=== PATIENT | female | born 1980 | race Caucasian/White ===

== ENCOUNTER 2017-08-22 16:48 | Emergency (ER) | payer OTHER ==
[2017-08-22 17:04] VITALS: BP 140/78; RESP 18
--- NOTE | 2017-08-22 17:07 | ED ---
Lower Extremity Injury HPI - General Chief Complaint: Extremity Injury, Lower Stated Complaint: Right Foot Injury Time Seen by Provider: 08/22/17 16:56 Source: patient, RN notes reviewed Mode of arrival: ambulatory Limitations: no limitations - History of Present Illness Initial Comments: This is a 37 year old female who presents with a chief complaint of right 4th toe and right foot pain which began 8 days ago after the patient stubbed her toe. The patent states the pain is worse when moving the right 4th toe and with walking. She states the swelling was worse and there was significant bruising initially compared to today. She denies any associated injuries. - Related Data Previous Rx's Medication Instructions Recorded Acetaminophen-Codeine 300-30mg 1 tab PO Q4H PRN #20 tablet 08/22/17 [Tylenol #3] Ibuprofen [Motrin] 600 mg PO Q8HR PRN #30 tab 08/22/17 Allergies Allergy/AdvReac Type Severity Reaction Status Date / Time No Known Allergies Allergy Verified 08/22/17 17:04 Review of Systems ROS Statement: Those systems with pertinent positive or pertinent negative responses have been documented in the HPI. ROS Other: All systems not noted in ROS Statement are negative. Past Medical History Past Medical History: No Reported History History of Any Multi-Drug Resistant Organisms: None Reported Past Surgical History: Cholecystectomy, Tubal Ligation Past Psychological History: No Psychological Hx Reported Smoking Status: Never smoker Past Alcohol Use History: None Reported Past Drug Use History: None Reported General Exam Limitations: no limitations General appearance: alert, in no apparent distress Eye exam: Present: normal appearance, PERRL, EOMI. Absent: scleral icterus, conjunctival injection, periorbital swelling Respiratory exam: Present: normal lung sounds bilaterally. Absent: respiratory distress, wheezes, rales, rhonchi, stridor Cardiovascular Exam: Present: regular rate, normal rhythm, normal heart sounds. Absent: systolic murmur, diastolic murmur, rubs, gallop, clicks Extremities exam: Present: tenderness (Notable right foot swelling and ecchymoses on the lateral aspect of the foot. Tender with palpation of the right dorsal foot and right 4th toe. The 4th toe is edematous. Neurovascular remains grossly intact.), normal capillary refill Neurological exam: Present: alert, oriented X3, CN II-XII intact Psychiatric exam: Present: normal affect, normal mood Skin exam: Present: warm, dry, intact, normal color. Absent: rash Course Vital Signs 08/22/17 17:01 Temperature 97.5 F L Pulse Rate 81 Respiratory 18 Rate Blood Pressure 140/78 O2 Sat by Pulse 97 Oximetry Medical Decision Making - Medical Decision Making 37-year-old female presented emergency Department chief complaint of right foot injury. X-rays were reviewed radiologist says there is no acute fracture though upon further review there is small cortical disruption noted the fourth digit. Patient was updated on x-ray results that she has a toe fracture patient we given prescription for anti-inflammatories, pain medication by the follow-up with primary care physician and return for any worsening symptoms. Disposition Clinical Impression: Toe fracture, right Disposition: HOME SELF-CARE Condition: Stable Instructions: Toe Fracture (ED) Additional Instructions: Please return to the Emergency Department if symptoms worsen or any other concerns. Prescriptions: Acetaminophen-Codeine 300-30mg [Tylenol #3] 1 tab PO Q4H PRN #20 tablet PRN Reason: pain Ibuprofen [Motrin] 600 mg PO Q8HR PRN #30 tab PRN Reason: Pain Referrals: None,Stated [Primary Care Provider] - 1-2 days Kris Gunn MD [STAFF PHYSICIAN] - 1-2 days Time of Disposition: 17:39
--- NOTE | 2017-08-22 17:25 | XR ---
PROCEDURE: XR foot limited RT 2 views DATE AND TIME: 08/22/2017 5:15 PM REFERRING PHYSICIAN: Abdoul Carvalho CLINICAL INDICATION: PHH, Pain Versed and anterior right foot pain after patient stubbed her big toe. TECHNIQUE: AP and lateral. COMPARISON: None FINDINGS: There is no fracture or malalignment. The soft tissues are unremarkable. IMPRESSION: NO ACUTE PROCESS.
[2017-08-22 17:56] VITALS: PULSE 82; TEMP 98
== END 2017-08-22 17:55 | disposition home or self-care (01) ==
LOC: EC 16:48
DX: S92.501A Displaced unspecified fracture of right lesser toe(s), initial encounter for closed fracture (principal); W22.8XXA Striking against or struck by other objects, initial encounter
CPT/HCPCS: 99283

== ENCOUNTER → 2018-08-01 | Outpatient (CLI) | payer OTHER | END | disposition home or self-care (01) | LOC: LABWHC1 10:51 | PROVIDERS: ATTEND Internal Medicine Critical Care Medicine | DX: J31.0 Chronic rhinitis (principal) | CPT/HCPCS: 36415; 82785 ==

== ENCOUNTER → 2018-10-30 | Outpatient (CLI) | payer OTHER ==
[2018-10-31 12:06] LABS: Dog Dander IgE <0.10 kU/L
[2018-10-31 12:07] LABS: Alternaria alternata IgE <0.10 kU/L; Birch IgE <0.10 kU/L; Maple (Box Elder) IgE <0.10 kU/L
[2018-10-31 12:08] LABS: Cockroach IgE <0.10 kU/L
[2018-10-31 12:09] LABS: Cat Epith & Dander IgE <0.10 kU/L; Dermato. farinae IgE <0.10 kU/L
[2018-10-31 12:10] LABS: Elm IgE <0.10 kU/L; Oak IgE <0.10 kU/L; Ragweed,Common IgE 0.13 kU/L; Red Top (Bentgrass) IgE <0.10 kU/L
== END | disposition home or self-care (01) ==
LOC: LABWHC1 13:27
PROVIDERS: ATTEND Internal Medicine Critical Care Medicine
DX: J30.89 Other allergic rhinitis (principal)
CPT/HCPCS: 36415; 82785; 86003

== ENCOUNTER → 2019-04-10 | Outpatient (CLI) | payer OTHER ==
[2019-04-10 20:58] LABS: HIV 1 AB Non-Reactive (Non-Reactive); HIV AB P24 Non-Reactive (Non-Reactive); HIV P24 AG Non-Reactive (Non-Reactive)
== END | disposition home or self-care (01) ==
LOC: LABWHC1 11:58
PROVIDERS: ATTEND Internal Medicine
DX: Z11.3 Encounter for screening for infections with a predominantly sexual mode of transmission (principal)
CPT/HCPCS: 36415; 86780; 87390

== ENCOUNTER → 2019-05-07 | Outpatient (CLI) | payer OTHER | END | disposition home or self-care (01) | LOC: LABWHC1 12:11 | PROVIDERS: ATTEND Internal Medicine Critical Care Medicine | DX: J31.0 Chronic rhinitis (principal) | CPT/HCPCS: 36415; 82785 ==

== ENCOUNTER → 2020-03-23 | Outpatient (CLI) | payer OTHER ==
--- NOTE | 2020-03-23 10:26 | XR ---
EXAMINATION TYPE: XR foot limited LT DATE OF EXAM: 03/23/2020 CLINICAL HISTORY: pain TECHNIQUE: Frontal, lateral images of the left foot are obtained. COMPARISON: None. FINDINGS: Fracture is noted at the base of the proximal phalanx left fifth toe with a degree of callu s formation suggesting nonacute process. 1 mm displacement seen. The joint spaces appear within norm al limits. The overlying soft tissue appears unremarkable. IMPRESSION: Fracture as well. ICD 10 closed FRACTURE, INITIAL EVALUATION
--- NOTE | 2020-03-23 23:04 | MR ---
EXAMINATION TYPE: MR shoulder RT wo con DATE OF EXAM: 03/23/2020 COMPARISON: None HISTORY: Rt shoulder pain, rotator cuff tear Technique: Multiplanar, multiecho imaging on a 3.0 Mer magnet is performed through the shoulder. Findings: Long head of the biceps tendon is within the bicipital groove. There is fluid in the subacromial bursa, this extends towards the subdeltoid bursa. Glenoid labrum a s visualized on this noncontrast study appears with increased signal within its superior portion. 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 Rotator cuff tendons are evaluated. There is fluid type signal transversing the distal supraspinatus tendon and a small segment measuring 0.9 cm. No tendon or muscle retraction is evident. No muscle at rophy is evident. Remaining rotator cuff tendons appear intact. The acromioclavicular junction is hypertrophied which can contribute to impingement syndrome. There i s some downward sloping of the acromion IMPRESSIONS: 1. Partial tear without tendon or muscle retraction of the distal supraspinatus tendon. 2. Moderate tendinosis supraspinatus tendon. 3. Consider superior glenoid labral tear.
== END | disposition home or self-care (01) ==
LOC: RADMRIMAIN 09:11
PROVIDERS: ATTEND Internal Medicine
DX: M79.672 Pain in left foot (principal); S99.922A Unspecified injury of left foot, initial encounter; M25.511 Pain in right shoulder; G89.29 Other chronic pain; M75.111 Incomplete rotator cuff tear or rupture of right shoulder, not specified as traumatic

== ENCOUNTER 2021-05-31 17:22 | Emergency (ER) | payer OTHER ==
[2021-05-31 18:37] VITALS: RESP 18; TEMP 98.2
[2021-05-31] MEDS ORDERED: TOBRAMYCIN 0.3% OPHTH DROPS 5 ML BTL RIGHT EYE STA (19:15)
[2021-05-31] MEDS ORDERED: KETOTIFEN 0.025% OPHTH DROPS 5 ML BTL RIGHT EYE STA (19:15)
--- NOTE | 2021-05-31 19:17 | ED ---
Eye Problem HPI - General Chief complaint: Eye Problems Stated complaint: eye issues Time Seen by Provider: 05/31/21 19:03 Source: patient, RN notes reviewed Mode of arrival: ambulatory Limitations: no limitations - History of Present Illness Initial comments: This a 41-year-old female presents emergency Department with chief complaint of eye irritation. Patient states that she was at the bar Halloween states it's only through some sort of liquid. Patient states she just felt ago at the time but at home fits her eyes were irritated primarily right, woke up the next day with some irritation worsened today. She also noticed some increasing redness to her right eye. No visual changes no sensation of foreign bodies. Patiently discharges dry. Patient offers no complaint of headache dizziness denies wearing contact lenses. - Related Data Home Medications Medication Instructions Recorded Confirmed Albuterol Sulfate [Proair Hfa] 1 puff INHALATION RT-Q6H PRN 05/31/21 05/31/21 Cetirizine HCl 10 mg PO DAILY 05/31/21 05/31/21 Diazepam [Valium] 5 mg PO Q12H PRN 05/31/21 05/31/21 HYDROcodone/APAP 10-325MG [[place] 1 tab PO Q8H PRN 05/31/21 05/31/21 10-325] Ibuprofen [Motrin] 800 mg PO Q8H PRN 05/31/21 05/31/21 Lidocaine 5% Oint [Xylocaine 5% 1 applic TOPICAL QID PRN 05/31/21 05/31/21 Oint] Loratadine 10 mg PO DAILY 05/31/21 05/31/21 Montelukast [Singulair] 10 mg PO HS 05/31/21 05/31/21 Naloxone HCl [Narcan] 4 mg NASAL ONCE PRN 05/31/21 05/31/21 Ondansetron [Zofran ODT] 4 mg PO Q8H PRN 05/31/21 05/31/21 Phentermine HCl [Adipex-P] 37.5 mg PO DAILY 05/31/21 05/31/21 Allergies Allergy/AdvReac Type Severity Reaction Status Date / Time No Known Allergies Allergy Verified 05/31/21 19:26 Review of Systems ROS Statement: Those systems with pertinent positive or pertinent negative responses have been documented in the HPI. ROS Other: All systems not noted in ROS Statement are negative. Past Medical History Past Medical History: No Reported History History of Any Multi-Drug Resistant Organisms: None Reported Past Surgical History: Cholecystectomy, Tubal Ligation Past Psychological History: No Psychological Hx Reported Smoking Status: Current every day smoker Past Alcohol Use History: Occasional Past Drug Use History: None Reported General Exam Limitations: no limitations General appearance: alert, in no apparent distress Head exam: Present: atraumatic, normocephalic, normal inspection Eye exam: Present: PERRL, EOMI. Absent: normal appearance (Subconjunctival hemorrhage on the right, mild injection noted, no foreign body), scleral icterus, conjunctival injection, periorbital swelling ENT exam: Present: normal exam, normal oropharynx, mucous membranes moist Neck exam: Present: normal inspection, full ROM. Absent: tenderness, meningismus, lymphadenopathy Respiratory exam: Present: normal lung sounds bilaterally. Absent: respiratory distress, wheezes, rales, rhonchi, stridor Cardiovascular Exam: Present: regular rate, normal rhythm, normal heart sounds. Absent: systolic murmur, diastolic murmur, rubs, gallop, clicks Course Vital Signs 05/31/21 18:33 Temperature 98.2 F Pulse Rate 105 H Respiratory 18 Rate Blood Pressure 150/103 O2 Sat by Pulse 97 Oximetry Medical Decision Making - Medical Decision Making Patient has right eye conjunctivitis, subconjunctival hemorrhage no visual changes be discharged in stable condition return parameters were discussed. Disposition Clinical Impression: Conjunctivitis, Subconjunctival hemorrhage Disposition: HOME SELF-CARE Condition: Stable Additional Instructions: Please return to the Emergency Department if symptoms worsen or any other concerns. Use Tobrex eyedrops 1 drop every 4 hours for 7 days, use Zaditor eyedrops 1 drop twice daily Is patient prescribed a controlled substance at d/c from ED?: No Referrals: Yesica Joaquin DO [Primary Care Provider] - 1-2 days Time of Disposition: 19:17
[2021-05-31 19:48] VITALS: BP 141/99; PULSE 98
== END 2021-05-31 19:48 | disposition home or self-care (01) ==
LOC: EC 17:22
DX: H11.31 Conjunctival hemorrhage, right eye (principal); H10.9 Unspecified conjunctivitis; F17.200 Nicotine dependence, unspecified, uncomplicated; Z90.49 Acquired absence of other specified parts of digestive tract; Z98.51 Tubal ligation status
CPT/HCPCS: 99283